=== PATIENT | male | born 2000 | race Caucasian/White ===

== ENCOUNTER 2019-07-12 17:17 | Emergency (ER) | payer OTHER ==
--- NOTE | 2019-07-12 19:49 | ED ---
Lower Extremity - HPI Summary HPI Summary: 18 year old M presenting to [facility] alone complains of pain on the side of his left knee since injuring his left leg in a pothole during a run earlier today. Patient reports PMHx of a torn meniscus on his R side for which he got surgery for and states that he is experiencing a similar sensation currently. He states he took Advil earlier. No SocHx of smoking but uses alcohol. SHx of wisdom tooth extraction a few months ago. The patient rates the pain 6/10 in severity. Symptoms aggravated by nothing. Symptoms alleviated by nothing. - History of Current Complaint Chief Complaint: EDExtremityLower Stated Complaint: LEFT KNEE INJURY PER PT Time Seen by Provider: 07/12/19 19:03 Hx Obtained From: Patient Mechanism Of Injury: Direct Blow - foot went into pothole Onset/Duration: Hours Severity Currently: Moderate Pain Intensity: 6 Pain Scale Used: 0-10 Numeric Aggravating Factor(s): Nothing Alleviating Factor(s): Nothing - Allergies/Home Medications Allergies/Adverse Reactions: Allergies Allergy/AdvReac Type Severity Reaction Status Date / Time No Known Allergies Allergy Verified 07/12/19 17:21 PMH/Surg Hx/FS Hx/Imm Hx Endocrine/Hematology History: Denies: Hx Diabetes Cardiovascular History: Denies: Hx Hypertension - Surgical History Surgical History: Yes Surgery Procedure, Year, and Place: Right meniscus repair - Immunization History Immunizations Up to Date: Yes Infectious Disease History: No Infectious Disease History: Denies: Traveled Outside the [place] in Last 30 Days - Family History Known Family History: Negative: Hypertension, Diabetes - Social History Alcohol Use: Occasionally Substance Use Type: Reports: None Smoking Status (MU): Never Smoked Tobacco Review of Systems Negative: Fever Musculoskeletal: Other - Pain on side of left knee that feels similar to torn meniscus he had in past All Other Systems Reviewed And Are Negative: Yes Physical Exam - Summary Physical Exam Summary: VITAL SIGNS: Reviewed. GENERAL: Patient is a well-developed and nourished male who is lying comfortable in the stretcher. Patient is not in any acute respiratory distress. HEAD AND FACE: No signs of trauma. No ecchymosis, hematomas or skull depressions. No sinus tenderness. EYES: PERRLA, EOMI x 2, No injected conjunctiva, no nystagmus. EARS: Hearing grossly intact. Ear canals and tympanic membranes are within normal limits. MOUTH: Oropharynx within normal limits. NECK: Supple, trachea is midline, no adenopathy, no JVD, no carotid bruit, no c- spine tenderness, neck with full ROM. CHEST: Symmetric, no tenderness at palpation. LUNGS: Clear to auscultation bilaterally. No wheezing or crackles. CVS: Regular rate and rhythm, S1 and S2 present, no murmurs or gallops appreciated. ABDOMEN: Soft, non-tender. No signs of distention. No rebound, no guarding, and no masses palpated. Bowel sounds are normal. EXTREMITIES: Left knee with no deformity, no hematoma, no aberrations, full ROM , light tenderness lateral aspect of L knee at palpation NEURO: Alert and oriented x 3. No acute neurological deficits. Speech is normal and follows commands. SKIN: Dry and warm. Triage Information Reviewed: Yes Vital Signs On Initial Exam: Initial Vitals Temp Pulse Resp BP Pulse Ox 97.1 F 60 18 142/83 100 07/12/19 17:19 07/12/19 17:19 07/12/19 17:19 07/12/19 17:19 07/12/19 17:19 Vital Signs Reviewed: Yes Procedures - Sedation Patient Received Moderate/Deep Sedation with Procedure: No Diagnostics - Vital Signs Vital Signs Temp Pulse Resp BP Pulse Ox 07/12/19 17:19 97.1 F 60 18 142/83 100 - Laboratory Lab Statement: Any lab studies that have been ordered have been reviewed, and results considered in the medical decision making process. - Radiology Left Knee x-ray Radiology Interpretation Completed By: ED Physician Summary of Radiographic Findings: No acute fracture dislocation. Pending official report. Lower Extremity Course/Dx - Course Assessment/Plan: 18 year old M presenting to [facility] alone complains of pain on the side of his left knee since injuring his left in a pothole during a run earlier today. Patient reports PMHx of a torn meniscus on his R side for which he got surgery for and states that he is experiencing a similar sensation currently. He states he took Advil earlier. No SocHx of smoking but uses alcohol. SHx of wisdom tooth extraction a few months ago. The patient rates the pain 6/10 in severity. Symptoms aggravated by nothing. Symptoms alleviated by nothing. X-ray of the left knee impression: No acute fracture dislocation. The patient was placed in the knee immobilizer. He will take ibuprofen for pain. The patient will be discharged home with follow-up with orthopedics. PE findings: Left knee with no deformity, no hematoma, no aberrations, full ROM, light tenderness lateral aspect of L knee at palpation. Patient was given crutches. Patient is hemodynamically stable alert and oriented x 3. . - Diagnoses Provider Diagnoses: Knee injury Discharge ED - Sign-Out/Discharge Documenting (check all that apply): Patient Departure - discharge - Discharge Plan Condition: Stable Disposition: HOME Patient Education Materials: Knee Pain (ED) Referrals: Clarice Garica MD [Medical Doctor] - Additional Instructions: FOLLOW UP WITH , ORTHOPEDICS, IN A WEEK. RETURN TO THE ED FOR ANY WORSENING OR NEW SYMPTOMS. - Billing Disposition and Condition Condition: STABLE Disposition: Home - Attestation Statements Document Initiated by Franklin: Yes Documenting Scribe: Kirk Dior Provider For Whom Franklin is Documenting (Include Credential): Dr.Walter Joe MD Scribe Attestation: Kirk Diggs scribed for Dr.Walter Joe MD on 07/14/19 at 2027. Scribe Documentation Reviewed: Yes Provider Attestation: The documentation as recorded by the Kirk wallace accurately reflects the service I personally performed and the decisions made by me, Dr.Walter Joe MD Status of Scribe Document: Viewed
[2019-07-12] MEDS: Ketorolac *IM* INJ* 60 MG/2 ML VIAL IM ONE (20:26)
[2019-07-12 20:30] VITALS: BP 125/65
== END 2019-07-12 20:28 | disposition home or self-care (01) ==
LOC: ED 17:17
DX: S89.92XA Unspecified injury of left lower leg, initial encounter (principal); X58.XXXA Exposure to other specified factors, initial encounter; Y93.02 Activity, running; Y92.9 Unspecified place or not applicable
CPT/HCPCS: 96372; 99282; J1885